=== PATIENT | male | born 1995 | race Hispanic/Latino ===

== ENCOUNTER 2017-06-23 13:47 | Emergency (ER) | payer OTHER ==
[2017-06-23] MEDS ORDERED: ONDANSETRON HCL MDV 20ML 2 MG/ML VIAL ONE (14:31)
[2017-06-23] MEDS ORDERED: SODIUM CHLORIDE 0.9% 1000ML 1,000 ML IV ONE (14:31)
[2017-06-23] MEDS ORDERED: KETOROLAC TROMETHAMINE 30MG/ML ONE (14:32)
[2017-06-23 14:49] LABS: BASOPHILS % (AUTO) 0.4 % (0.0-5.0); EOSINOPHILS % (AUTO) 0.7 % (0.0-8.0); HEMATOCRIT 47.5 % (42-54); LYMPHOCYTES % (AUTO) 5.2 % (21.0-51.0); MEAN CORPUSCULAR HGB CONC 34.7 g/dL (32.0-36.0); MEAN CORPUSCULAR VOLUME 86.4 fL (79-99); MONOCYTES % (AUTO) 5.5 % (3.0-13.0); NEUTROPHILS % (AUTO) 88.2 % (40.0-77.0); PLATELET COUNT (AUTO) 308 K/uL (130-400); RED CELL DISTRIBUTION WIDTH 13.3 % (11.0-15.5)
[2017-06-23 15:00] LABS: BILIRUBIN,URINE Negative (NEGATIVE); COLOR,URINE Dark Yellow (YELLOW); GLUCOSE, URINE (UA) Negative (NEGATIVE); KETONES,URINE Negative (NEGATIVE); LEUKOCYTE ESTERASE ,URINE Negative (NEGATIVE); NITRATE,URINE Negative (NEGATIVE); OCCULT BLOOD,URINE Negative (NEGATIVE); PROTEIN,URINE Negative (NEGATIVE); UROBILINOGEN,URINE 0.2 mg/dL (0.2-1.0)
[2017-06-23 15:08] LABS: APPEARANCE,URINE CLOUDY (CLEAR)
[2017-06-23 15:11] LABS: CREATININE 1.1 mg/dL (0.5-1.5)
[2017-06-23 15:13] LABS: INR 0.93 (0.85-1.15); PARTIAL THROMBOPLASTIN TIME 28.1 SEC (26.3-35.5); PROTHROMBIN TIME 9.8 SEC (9.6-11.6)
[2017-06-23 15:14] LABS: AMPHET/METH SCREEN,URINE NEGATIVE (NEGATIVE); BARBITURATE SCREEN, URINE NEGATIVE (NEGATIVE); BENZODIAZEPINES SCREEN,URINE NEGATIVE (NEGATIVE); CANNABINOID SCREEN,URINE NEGATIVE (NEGATIVE); COCAINE SCREEN,URINE POSITIVE (NEGATIVE); OPIATE SCREEN,URINE NEGATIVE (NEGATIVE); PHENCYCLIDINE SCREEN,URINE NEGATIVE (NEGATIVE)
[2017-06-23 15:16] LABS: ALBUMIN 4.2 g/dL (3.5-5.0); BILIRUBIN,DIRECT 0.1 mg/dL (0.0-0.3); BILIRUBIN,TOTAL 0.6 mg/dL (0.2-1.0); TOTAL PROTEIN, SERUM 8.3 g/dL (6.0-8.3)
[2017-06-23 15:23] LABS: RBC,URINE 0-1 /HPF (0-1); WBC,URINE 0-1 /HPF (0-1)
[2017-06-23 15:24] LABS: AMORPHOUS SEDIMENT,UR Moderate /LPF (None Seen); BACTERIA,URINE Rare /HPF (None Seen); MUCUS,URINE Rare LPF (None Seen); SQUAMOUS EPITHELIAL CELL,UR None Seen /HPF (0-2)
== END 2017-06-23 18:15 | disposition home or self-care (01) ==
LOC: EDH 13:47
DX: F14.10 Cocaine abuse, uncomplicated (principal); K59.00 Constipation, unspecified
CPT/HCPCS: 36415; 74176; 80048; 80076; 80305; 81001; 82550; 83690; 85025; 85610; 85730; 96374; 96375; 99285; J1885; J7030